=== PATIENT | male | born 1990 | race Caucasian/White ===

== ENCOUNTER 2019-01-30 21:58 | Emergency (ER) | payer OTHER ==
[2019-01-30] MEDS: KETOROLAC 30 MG INJ IM (23:08)
[2019-01-30] MEDS: DIPHTH/TET/ACEL PERTUSS (ADULT) 0.5 ML VIAL IM* (23:09)
[2019-01-30] MEDS: TETRACAINE 0.5% 4 ML OPH BOTH EYES (23:09)
[2019-01-30] MEDS: FLUORESCEIN STRIP BOTH EYES (23:09)
[2019-01-31] MEDS: ERYTHROMYCIN 1 GM OPH OINT BOTH EYES (00:11)
== END 2019-01-31 00:16 | disposition home or self-care (01) ==
LOC: FTE 01-31 00:16
DX: S00.12XA Contusion of left eyelid and periocular area, initial encounter (principal); W22.8XXA Striking against or struck by other objects, initial encounter; Y92.9 Unspecified place or not applicable; Z23 Encounter for immunization
CPT/HCPCS: 90471; 90715; 96372; 99284-25